=== PATIENT | female | born 1935 | race Caucasian/White ===

== ENCOUNTER 2023-12-27 10:45 | Inpatient (IN) ==
[2023-12-27] MEDS: 0.9 % SODIUM CHLORIDE 250 ML IV SCH (12:19)
[2023-12-27 12:20] LABS: Basophils # (Auto) 0.02 K/mcL (0.00-0.30); Basophils % (Auto) 0.4 % (0.0-2.0); Eosinophils # (Auto) 0.24 K/mcL (0.00-0.70); Eosinophils % (Auto) 5.3 % (0.0-7.0); Hematocrit 35.9 % (34.1-44.9); Hemoglobin 10.9 g/dL (11.2-15.7); Lymphocytes # (Auto) 0.79 K/mcL (1.50-4.80); Lymphocytes % (Auto) 17.4 % (15.5-49.0); Mean Cell Volume 99.7 fL (80.0-100.0); Mean Corpuscular HGB Conc 30.4 g/dL (31.0-36.0); Mean Platelet Volume 9.5 fL (8.8-12.5); Monocytes # (Auto) 0.45 K/mcL (0.10-0.90); Monocytes % (Auto) 9.9 % (1.0-12.0); Neutrophils % (Auto) 66.8 % (38.0-78.0); Platelet Count 193 K/mcL (140-440); WBC 4.5 K/mcL (4.5-11.0)
[2023-12-27] MEDS ORDERED: PROPOFOL 200 MG/20 ML VIAL IV ONE (12:36)
[2023-12-27] MEDS ORDERED: LIDOCAINE 2% PF 5 ML VIAL ONE (12:36)
[2023-12-27] MEDS ORDERED: fentaNYL 100 MCG/2 ML VIAL ONE (12:36)
[2023-12-27 12:51] LABS: Blood Urea Nitrogen 23 mg/dL (8-23); Calcium 8.3 mg/dL (8.6-10.4); Carbon Dioxide 21 mmol/L (22-30); Chloride 106 mmol/L (96-108); Glomerular Filtration Rate 40; Glucose 101 mg/dL (70-105)
[2023-12-27] MEDS ORDERED: ROPIVACAINE HCL/PF 30 ML VIAL IJ ONE (12:54)
[2023-12-27 13:03] LABS: INR 1.2 (0.9-1.1); Prothrombin Time 15.6 sec (11.9-14.5)
[2023-12-27] MEDS: ceFAZolin 2 GM in DEXTROSE 5% IN WATER 50 ML IV SCH (13:46)
[2023-12-27 13:50] LABS: INR 1.2 (0.9-1.1); Prothrombin Time 15.7 sec (11.9-14.5)
[2023-12-27] MEDS ORDERED: TRANEXAMIC ACID 1,000 MG/10 ML VIAL ONE (14:07)
[2023-12-27] MEDS ORDERED: ONDANSETRON 4 MG/2 ML VIAL ONE (14:24)
[2023-12-27] MEDS ORDERED: MAGNESIUM SULFATE 2 GM/50 ML BAG IV ONE (14:37)
[2023-12-27] MEDS ORDERED: IPRATROPIUM/ALBUTEROL 3 ML AMPUL.NEB NEB PRN ×2 (14:44→16:07)
[2023-12-27] MEDS ORDERED: HYDROmorphone 0.5 MG/0.5 ML SYRINGE IV PRN (14:44)
[2023-12-27] MEDS: fentaNYL 100 MCG/2 ML VIAL IV PRN (15:27)
[2023-12-27] MEDS ORDERED: ACETAMINOPHEN 325 MG TABLET PO PRN (16:07)
[2023-12-27] MEDS ORDERED: MAGNESIUM HYDROXIDE 30 ML ORAL.SUSP PO PRN (16:07)
[2023-12-27] MEDS ORDERED: ONDANSETRON 4 MG/2 ML VIAL IV PRN (16:07)
[2023-12-27] MEDS ORDERED: IBUPROFEN 600 MG TABLET PO PRN (16:07)
[2023-12-27 16:30] LABS: Basophils # (Auto) 0.02 K/mcL (0.00-0.30); Basophils % (Auto) 0.3 % (0.0-2.0); Eosinophils # (Auto) 0.24 K/mcL (0.00-0.70); Eosinophils % (Auto) 4.1 % (0.0-7.0); Hematocrit 35.1 % (34.1-44.9); Hemoglobin 10.7 g/dL (11.2-15.7); Lymphocytes # (Auto) 0.87 K/mcL (1.50-4.80); Mean Cell Volume 100.3 fL (80.0-100.0); Mean Corpuscular HGB Conc 30.5 g/dL (31.0-36.0); Mean Platelet Volume 9.4 fL (8.8-12.5); Monocytes # (Auto) 0.39 K/mcL (0.10-0.90); Monocytes % (Auto) 6.7 % (1.0-12.0); Neutrophils % (Auto) 73.6 % (38.0-78.0); Platelet Count 202 K/mcL (140-440); Red Cell Distribution Width 13.7 % (11.5-14.5); WBC 5.8 K/mcL (4.5-11.0)
[2023-12-27] MEDS: LACTATED RINGERS 1,000 ML IV SCH ×2 (16:51→16:53)
[2023-12-27] MEDS: oxyCODONE/APAP 10/325MG TABLET PO PRN (16:52)
[2023-12-27] MEDS: 0.9 % SODIUM CHLORIDE 10 ML SYRINGE IV SCH (16:52)
[2023-12-27 16:57] LABS: ALT/SGPT 6 U/L (<40); AST/SGOT 19 U/L (<32); Albumin 3.8 gm/dL (3.2-5.2); Albumin/Globulin Ratio 1.7 (1.0-2.3); Alkaline Phosphatase 112 U/L (39-117); Bilirubin,Total 0.2 mg/dL (0.1-1.0); Blood Urea Nitrogen 20 mg/dL (8-23); Calcium 8.4 mg/dL (8.6-10.4); Carbon Dioxide 22 mmol/L (22-30); Chloride 106 mmol/L (96-108); Globulin 2.2 gm/dL (2.2-3.7); Glomerular Filtration Rate 45; Glucose 101 mg/dL (70-105)
[2023-12-27 17:37] LABS: Appearance,Urine Clear (Clear); Bilirubin,Urine Negative (Negative); Color,Urine Yellow; Culture Indicated,Urine No; Glucose,Urine (UA) Negative (Negative); Ketones,Urine Negative (Negative); Leukocyte Esterase,Urine Negative /uL (Negative); Nitrate,Urine Negative (Negative); PH,Urine 5.5 (5.0-9.0); Protein,Urine Negative (Negative); Urine Blood Negative ery/mcL (Negative); Urobilinogen,Urine 0.2 mg/dL
[2023-12-27] MEDS: METHOCARBAMOL 500 MG TABLET PO PRN (20:57)
[2023-12-27] MEDS: SENNOSIDES 1 TABLET PO SCH (20:58)
[2023-12-27] MEDS: DOCUSATE SODIUM 100 MG CAPSULE PO SCH (20:59)
[2023-12-28 07:12] LABS: ALT/SGPT < 5 U/L (<40); AST/SGOT 17 U/L (<32); Albumin 3.6 gm/dL (3.2-5.2); Albumin/Globulin Ratio 1.7 (1.0-2.3); Alkaline Phosphatase 105 U/L (39-117); Bilirubin,Total 0.3 mg/dL (0.1-1.0); Blood Urea Nitrogen 18 mg/dL (8-23); Calcium 8.7 mg/dL (8.6-10.4); Carbon Dioxide 23 mmol/L (22-30); Chloride 108 mmol/L (96-108); Globulin 2.1 gm/dL (2.2-3.7); Glomerular Filtration Rate 77; Glucose 141 mg/dL (70-105)
[2023-12-28 07:26] LABS: Basophils # (Auto) 0.01 K/mcL (0.00-0.30); Basophils % (Auto) 0.2 % (0.0-2.0); Eosinophils # (Auto) 0 K/mcL (0.00-0.70); Eosinophils % (Auto) 0 % (0.0-7.0); Hematocrit 33.4 % (34.1-44.9); Hemoglobin 10.3 g/dL (11.2-15.7); Lymphocytes # (Auto) 0.61 K/mcL (1.50-4.80); Lymphocytes % (Auto) 10.3 % (15.5-49.0); Mean Cell Volume 98.5 fL (80.0-100.0); Mean Corpuscular HGB Conc 30.8 g/dL (31.0-36.0); Mean Platelet Volume 9.7 fL (8.8-12.5); Monocytes # (Auto) 0.21 K/mcL (0.10-0.90); Monocytes % (Auto) 3.5 % (1.0-12.0); Neutrophils % (Auto) 85.5 % (38.0-78.0); Platelet Count 208 K/mcL (140-440); RBC 3.39 M/mcL (3.59-5.38); Red Cell Distribution Width 13.6 % (11.5-14.5); WBC 5.9 K/mcL (4.5-11.0)
[2023-12-28] MEDS: AMIODARONE HCL 200 MG TABLET PO SCH (07:45)
[2023-12-28] MEDS: METOPROLOL SUCCINATE 25 MG TAB.XL.24H PO SCH (08:06)
[2023-12-28] MEDS: FLUTICASONE PROPIONATE SPRAY.NAS NAS SCH (08:07)
[2023-12-28] MEDS ORDERED: AMIODARONE HCL 200 MG TABLET PO SCH (09:00)
[2023-12-28] MEDS: ASPIRIN 81 MG TAB.CHEW CHEWED SCH (12:23)
== END 2023-12-28 14:45 | disposition home or self-care (01) | DRG 481 ==
LOC: ED 10:45 → SUR 12:42 → MEDSUR 16:02
PROVIDERS: ATTEND Orthopaedic Surgery